=== PATIENT | female | born 1940 | race Caucasian/White ===

== ENCOUNTER 2017-08-12 01:52 | Emergency (ER) | payer MEDICARE, MEDICAID ==
[2017-08-12 02:07] VITALS: BP 150/84
--- NOTE | 2017-08-12 02:12 | EDM.PDOC ---
ED HPI GENERAL MEDICAL PROBLEM - General Chief Complaint: Neuro Symptoms/Deficits Stated Complaint: IN BY AMBULANCE Time Seen by Provider: 08/12/17 01:56 Source of Information: Reports: EMS, Family History Limitations: Reports: Altered Mental Status - History of Present Illness INITIAL COMMENTS - FREE TEXT/NARRATIVE: ED via [facility]. Patient noted by daughter at 89 to be gurgling and shaking. Similar with previous CVA 9 years ago. Last time seen by family that was her usual was 830pm. Prior CVA parlysis to right upper and lower extremities, Limited ability to form words. Family note that patient now seems weaker on the left and is not tracking as well with simple instructions. Onset: Today - Related Data Allergies Allergy/AdvReac Type Severity Reaction Status Date / Time aspirin Allergy Difficulty Verified 10/24/15 09:21 Breathing latex Allergy Rash Verified 10/24/15 09:21 Penicillins Allergy Cannot Verified 10/24/15 09:21 Remember Home Meds: Home Meds Digoxin [Digox] 125 mcg PO DAILY 01/02/15 [History] Oxybutynin [Oxybutynin ER] 10 mg PO DAILY 01/02/15 [History] Calcium Carb/Vitamin D3/Vit K1 [Viactiv Soft Chew Tablet] 1 tab PO DAILY [History] Cholecalciferol (Vitamin D3) [Vitamin D] 1,000 unit PO DAILY 06/19/15 [History] Cyanocobalamin (Vitamin B-12) [Cyanocobalamin Injection] 1,000 mcg IJ ASDIRECTED 06/19/15 [History] Diltiazem IR [Cardizem] 15 mg PO ASDIRECTED 06/19/15 [History] Escitalopram [Lexapro] 20 mg PO DAILY 06/19/15 [History] Ferrous Sulfate [Iron] 325 mg PO DAILY 06/19/15 [History] Potassium Chloride 10 meq PO DAILY 06/19/15 [History] Warfarin [Coumadin] 5 mg PO DAILY 06/19/15 [History] Cranberry Extract [Cranberry] 250 mg PO DAILY 10/17/15 [History] Docusate Sodium [Colace] 100 mg PO DAILY PRN 10/17/15 [History] Methocarbamol 250 mg PO TID PRN 10/17/15 [History] Acetaminophen [Tylenol Extra Strength] 500 mg PO Q8H PRN 10/18/15 [History] Moxifloxacin HCl [Vigamox] 1 drop EYEBOTH QID 10/18/15 [History] Past Medical History HEENT History: Reports: Cataract, Impaired Vision Other HEENT History: WEARS CORRECTIVE LENSES Cardiovascular History: Reports: Afib Respiratory History: Other Respiratory History: HX OF RECENT BRONCHITIS Other Gastrointestinal History: abdominal hernia-hx surgery multiple times. 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: Musculoskeletal History: Reports: Osteoarthritis Other Musculoskeletal History: right sided paralysis-hx stroke Neurological History: Reports: CVA, Other (See Below) Other Neuro History: RIGHT SIDED WEAKNESS Psychiatric History: Reports: Depression Endocrine/Metabolic History: Reports: None Hematologic History: Reports: B12 Deficiency Immunologic History: Reports: None Oncologic (Cancer) History: Reports: None Dermatologic History: Reports: None - Infectious Disease History Infectious Disease History: Reports: Chicken Pox - Past Surgical History GI Surgical History: Reports: Bariatric Procedure, Hernia, Inguinal Social & Family History - Tobacco Use Smoking Status *Q: Light Tobacco Smoker Years of Tobacco use: 5 Used Tobacco, but Quit: Yes Month Tobacco Last Used: 0 Second Hand Smoke Exposure: No - Alcohol Use Days Per Week of Alcohol Use: 0 - Recreational Drug Use Recreational Drug Use: No Drug Use in Last 12 Months: No ED ROS GENERAL - Review of Systems Review Of Systems: See Below Constitutional: Reports: No Symptoms HEENT: Reports: No Symptoms Respiratory: Reports: No Symptoms Cardiovascular: Reports: No Symptoms Endocrine: Reports: No Symptoms GI/Abdominal: Reports: No Symptoms : Reports: No Symptoms Neurological: Reports: Pre-Existing Deficit, Seizure, Trouble Speaking, Weakness - Physical Exam Exam: See Below Exam Limited By: No Limitations General Appearance: Alert, No Apparent Distress Eye Exam: Bilateral Eye: EOMI (slight medial deviationof left ey), PERRL (4mm) Ears: Normal External Exam Nose: Normal Inspection Throat/Mouth: Normal Inspection Head Exam: Atraumatic, Normocephalic Neck: Normal Inspection, Supple Respiratory/Chest: No Respiratory Distress, Lungs Clear, Normal Breath Sounds Cardiovascular: Normal Peripheral Pulses, Regular Rate, Rhythm, No Gallop Rectal (Female) Exam: Normal Exam Neuro Exam (Abbreviated): Alert, Oriented Back Exam: Normal Inspection Extremities: Normal Inspection, Pedal Edema, Leg Pain (left lower), Limited Range of Motion. No: Mottled Psychiatric: Normal Affect Skin Exam: Warm, Dry, Intact, Normal Color, No Rash Course - Vital Signs Last Recorded V/S: Last Vital Signs Temp 98.0 F 08/12/17 01:57 Pulse 92 08/12/17 01:57 Resp 18 08/12/17 01:57 BP 150/84 H 08/12/17 01:57 Pulse Ox 97 08/12/17 01:57 - Orders/Labs/Meds Labs: Laboratory Tests 08/12/17 08/12/17 08/12/17 Range/Units 01:55 01:55 01:55 WBC 8.9 (5.0-10.0) 10^3/uL RBC 4.54 (4.2-5.4) 10^6/uL Hgb 14.1 (12.0-16.0) g/dL Hct 42.0 (37.0-47.0) % MCV 92.5 (80-100) fL MCH 31.1 (27.0-34.0) pg MCHC 33.6 (33.0-35.0) g/dL Plt Count 180 (150-450) 10^3/uL Neut % (Auto) 44.6 (42.2-75.2) % Lymph % (Auto) 44.9 (20.5-50.1) % [place] % (Auto) 8.1 H (2-8) % Eos % (Auto) 2.0 (1.0-3.0) % Baso % (Auto) 0.4 (0.0-1.0) % PT 20.9 H D (9.0-12.0) SEC INR 2.1 H (0.9-1.2) Sodium 137 (135-145) mmol/L Potassium 3.9 (3.6-5.0) mmol/L Chloride 101 (101-111) mmol/L Carbon Dioxide 26.0 (21.0-31.0) mmol/L Anion Gap 13.9 BUN 11 (7-18) mg/dL Creatinine 0.9 (0.6-1.3) mg/dL Est Cr Clr Drug Dosing 41.40 mL/min Estimated GFR (MDRD) > 60 BUN/Creatinine Ratio 12.22 Glucose 99 (74-105) mg/dL Calcium 8.8 (8.4-10.2) mg/dl Total Bilirubin 0.6 (0.2-1.0) mg/dL AST 30 (10-42) IU/L ALT 16 (10-60) IU/L Alkaline Phosphatase 66 (42-121) IU/L Troponin I < 0.02 (0.00-0.02) ng/ml B-Natriuretic Peptide 130 H (0-100) pg/ml Total Protein 6.4 L (6.7-8.2) g/dl Albumin 3.7 (3.2-5.5) g/dl Globulin 2.7 Albumin/Globulin Ratio 1.37 Urine Color (YELLOW) Urine Appearance (CLEAR) Urine pH (5.0-9.0) Ur Specific [place] (1.005-1.030) Urine Protein (NEGATIVE) Urine Glucose (UA) (NEGATIVE) Urine Ketones (NEGATIVE) Urine Occult Blood (NEGATIVE) Urine Nitrite (NEGATIVE) Urine Bilirubin (NEGATIVE) Urine Urobilinogen (0.2-1.0) mg/dL Ur Leukocyte Esterase (NEGATIVE) Urine RBC /HPF Urine WBC (0-5/HPF) /HPF Ur Epithelial Cells /HPF Urine Bacteria (0-FEW/HPF) /HPF Urine Mucus /LPF Urine Yeast (0/HPF) /HPF Digoxin (0-2.5) ng/ml 08/12/17 08/12/17 Range/Units 01:55 03:03 WBC (5.0-10.0) 10^3/uL RBC (4.2-5.4) 10^6/uL Hgb (12.0-16.0) g/dL Hct (37.0-47.0) % MCV (80-100) fL MCH (27.0-34.0) pg MCHC (33.0-35.0) g/dL Plt Count (150-450) 10^3/uL Neut % (Auto) (42.2-75.2) % Lymph % (Auto) (20.5-50.1) % [place]da % (Auto) (2-8) % Eos % (Auto) (1.0-3.0) % Baso % (Auto) (0.0-1.0) % PT (9.0-12.0) SEC INR (0.9-1.2) Sodium (135-145) mmol/L Potassium (3.6-5.0) mmol/L Chloride (101-111) mmol/L Carbon Dioxide (21.0-31.0) mmol/L Anion Gap BUN (7-18) mg/dL Creatinine (0.6-1.3) mg/dL Est Cr Clr Drug Dosing mL/min Estimated GFR (MDRD) BUN/Creatinine Ratio Glucose (74-105) mg/dL Calcium (8.4-10.2) mg/dl Total Bilirubin (0.2-1.0) mg/dL AST (10-42) IU/L ALT (10-60) IU/L Alkaline Phosphatase (42-121) IU/L Troponin I (0.00-0.02) ng/ml B-Natriuretic Peptide (0-100) pg/ml Total Protein (6.7-8.2) g/dl Albumin (3.2-5.5) g/dl Globulin Albumin/Globulin Ratio Urine Color Yellow (YELLOW) Urine Appearance Slightly cloudy (CLEAR) Urine pH 5.5 (5.0-9.0) Ur Specific [place] 1.020 (1.005-1.030) Urine Protein Negative (NEGATIVE) Urine Glucose (UA) Negative (NEGATIVE) Urine Ketones Negative (NEGATIVE) Urine Occult Blood Small H (NEGATIVE) Urine Nitrite Negative (NEGATIVE) Urine Bilirubin Negative (NEGATIVE) Urine Urobilinogen 0.2 (0.2-1.0) mg/dL Ur Leukocyte Esterase Negative (NEGATIVE) Urine RBC 5-10 H /HPF Urine WBC 0-5 (0-5/HPF) /HPF Ur Epithelial Cells Few /HPF Urine Bacteria Many H (0-FEW/HPF) /HPF Urine Mucus Few H /LPF Urine Yeast Few H (0/HPF) /HPF Digoxin 0.7 (0-2.5) ng/ml Meds: Medications Discontinued Medications Generic Name Dose Route Start Last Admin Trade Name Freq PRN Reason Stop Dose Admin Sodium Chloride 1,000 mls @ 100 mls/hr 08/12/17 03:40 Normal Saline IV 08/12/17 13:39 .BOLUS ONE - Radiology Interpretation Free Text/Narrative:: CT head no acute change, 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 Departure - Departure Time of Disposition: 03:42 Disposition: DC/Tfer to Acute Hospital 02 Condition: Fair Clinical Impression: Seizure, History of CVA with residual deficit, Anticoagulant long-term use Atrial fibrillation Qualifiers: Atrial fibrillation type: unspecified Qualified Code(s): I48.91 - Unspecified atrial fibrillation - Discharge Information Forms: ED Department Discharge
[2017-08-12 02:30] LABS: ANION GAP 13.9; CHLORIDE,CL 101 mmol/L (101-111); SODIUM,NA 137 mmol/L (135-145)
[2017-08-12] MEDS ORDERED: Sodium Chloride 0.9% 1,000 ML IV ONE (03:40)
--- NOTE | 2017-08-12 12:58 | EKG ---
08/12/2017 - TAIWO MCCURDY - This 12-lead EKG shows atrial fibrillation with a controlled ventricular rate of 77. Normal axis. No acute ST-segment or T-wave changes. [facility] /[id number]
== END 2017-08-12 04:35 ==
LOC: DL.ED 01:52
DX: R56.9 Unspecified convulsions (principal); I48.91 Unspecified atrial fibrillation; F17.210 Nicotine dependence, cigarettes, uncomplicated; Z88.6 Allergy status to analgesic agent; Z91.040 Latex allergy status; Z88.0 Allergy status to penicillin; Z86.73 Personal history of transient ischemic attack (TIA), and cerebral infarction without residual deficits; Z79.899 Other long term (current) drug therapy; Z79.01 Long term (current) use of anticoagulants
CPT/HCPCS: 36415; 70450; 80053; 80162; 81001; 83880; 84484; 85025; 85610; 93005; 93010; 99285

== ENCOUNTER 2019-09-17 14:13 | Emergency (ER) | payer MEDICARE, MEDICAID ==
[2019-09-17 14:51] LABS: ANION GAP 15.2; CHLORIDE,CL 103 mmol/L (101-111); SODIUM,NA 137 mmol/L (135-145)
--- NOTE | 2019-09-17 15:23 | EDM.PDOC ---
ED HPI GENERAL MEDICAL PROBLEM - General Chief Complaint: Trauma Stated Complaint: AMBULANCE Time Seen by Provider: 09/17/19 14:15 Source of Information: Reports: EMS, EMS Notes Reviewed, Family, [facility] Records, RN, RN Notes Reviewed History Limitations: Reports: Language Barrier (expressive aphasia), Physical Impairment (hemiparesis right side) - History of Present Illness INITIAL COMMENTS - FREE TEXT/NARRATIVE: patient presents to the ER per [facility] from skilled nursing after a fall. Fall was unwitnessed, patient was found lying on her right side. Staff states the patient is crying out in pain, complaining of pain in the left leg. Patient makes indication that she has not hit her head are pending May 14, staff agree they do not believe the patient hit her head or was knocked out. Upon arrival to the ER, patient does not complain of any pain upon assessment. Daughter is in the room, and states she does not feel her mother is in any pain at this time either. Onset: Today, Sudden - Related Data Allergies Allergy/AdvReac Type Severity Reaction Status Date / Time aspirin Allergy Difficulty Verified 07/08/18 10:48 Breathing latex Allergy Rash Verified 07/08/18 10:48 Penicillins Allergy Cannot Verified 07/08/18 10:48 Remember Home Meds: Home Meds Digoxin [Digox] 125 mcg PO DAILY 01/02/15 [History] Calcium Carb/Vitamin D3/Vit K1 [Viactiv Soft Chew] 1 tab PO DAILY 06/19/15 [ History] Cyanocobalamin (Vitamin B-12) [Cyanocobalamin Injection] 1,000 mcg IJ ASDIRECTED 06/19/15 [History] Diltiazem IR [Cardizem] 15 mg PO .MORNING 06/19/15 [History] Ferrous Sulfate [Iron] 325 mg PO Q48H 06/19/15 [History] Potassium Chloride 10 meq PO DAILY 06/19/15 [History] Warfarin [Coumadin] 5 mg PO DAILY 06/19/15 [History] Cranberry Fruit Extract [Cranberry] 250 mg PO DAILY 10/17/15 [History] Docusate Sodium [Colace] 100 mg PO DAILY PRN 10/17/15 [History] Acetaminophen [Tylenol Extra Strength] 500 mg PO Q8H PRN 10/18/15 [History] Citalopram [Citalopram HBr] 30 mg PO DAILY 07/08/18 [History] Diltiazem IR [Cardizem] 15 mg PO .MORNING 07/08/18 [History] Diltiazem IR [Cardizem] 30 mg PO BEDTIME 07/08/18 [History] lamoTRIgine [Lamotrigine] 25 mg PO .MORNING 07/08/18 [History] lamoTRIgine [Lamotrigine] 25 mg PO BEDTIME 07/08/18 [History] Ciprofloxacin [Ciprofloxacin HCl] 250 mg PO BID #10 tablet 07/09/18 [Rx] Lidocaine 5% [Lidoderm 5%] 700 mg TOP DAILY #5 patch 07/09/18 [Rx] Past Medical History HEENT History: Reports: Cataract, Impaired Vision Other HEENT History: WEARS CORRECTIVE LENSES Cardiovascular History: Reports: Afib Respiratory History: Other Respiratory History: HX OF RECENT BRONCHITIS Other Gastrointestinal History: abdominal hernia-hx surgery multiple times. 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: Musculoskeletal History: Reports: Osteoarthritis Other Musculoskeletal History: right sided paralysis-hx stroke Neurological History: Reports: CVA, Other (See Below) Other Neuro History: RIGHT SIDED WEAKNESS Psychiatric History: Reports: Depression Endocrine/Metabolic History: Reports: None Hematologic History: Reports: B12 Deficiency Immunologic History: Reports: None Oncologic (Cancer) History: Reports: None Dermatologic History: Reports: None - Infectious Disease History Infectious Disease History: Reports: Chicken Pox - Past Surgical History GI Surgical History: Reports: Bariatric Procedure, Hernia, Inguinal Social & Family History - Family History Family Medical History: Noncontributory - Caffeine Use Caffeine Use: Reports: Coffee - Living Situation & Occupation Living situation: Reports: Alone (with caregivers) Occupation: Retired Review of Systems - Review of Systems Review Of Systems: Comprehensive ROS is negative, except as noted in HPI. ED EXAM, GENERAL - Physical Exam Exam: See Below Exam Limited By: Language Barrier (expressive aphasia) General Appearance: Alert, WD/WN, Anxious Eye Exam: Bilateral Eye: EOMI, Normal Inspection Ears: Normal External Exam, Hearing Grossly Normal Nose: Normal Inspection Throat/Mouth: Normal Inspection, Normal Voice, No Airway Compromise, Other ( expressive aphasia) Head: Atraumatic, Normocephalic Neck: Normal Inspection, Supple, Non-Tender, Full Range of Motion Respiratory/Chest: No Respiratory Distress, Lungs Clear, Normal Breath Sounds, No Accessory Muscle Use, Chest Non-Tender Cardiovascular: Normal Peripheral Pulses, Regular Rate, Rhythm Peripheral Pulses: 2+: Radial (L), Radial (R) GI/Abdominal: Normal Bowel Sounds, Soft, Non-Tender (Female) Exam: Deferred Rectal (Female) Exam: Deferred Back Exam: Normal Inspection, Full Range of Motion, NT Extremities: Limited Range of Motion (right-sided hemiplegia from previous stroke) Neurological: Alert, Other (expressive aphasia) Psychiatric: Anxious Skin Exam: Warm, Dry, Intact, Normal Color, No Rash Lymphatic: No Adenopathy Course - Orders/Labs/Meds Labs: Laboratory Tests 09/17/19 09/17/19 09/17/19 Range/Units 13:50 13:50 13:50 WBC 7.1 (5.0-10.0) 10^3/uL RBC 4.17 L (4.2-5.4) 10^6/uL Hgb 13.6 D (12.0-16.0) g/dL Hct 41.1 (37.0-47.0) % MCV 98.6 D (80-100) fL MCH 32.6 (27.0-34.0) pg MCHC 33.1 (33.0-35.0) g/dL Plt Count 225 (150-450) 10^3/uL Neut % (Auto) 72.4 (42.2-75.2) % Lymph % (Auto) 18.1 L (20.5-50.1) % [place] % (Auto) 7.4 (2-8) % Eos % (Auto) 1.7 (1.0-3.0) % Baso % (Auto) 0.4 (0.0-1.0) % PT 15.8 H D (9.0-12.0) SEC INR 1.6 H (0.9-1.2) Sodium 137 (135-145) mmol/L Potassium 4.2 (3.6-5.0) mmol/L Chloride 103 (101-111) mmol/L Carbon Dioxide 23.0 (21.0-31.0) mmol/L Anion Gap 15.2 BUN 22 H (7-18) mg/dL Creatinine 1.0 (0.6-1.3) mg/dL Est Cr Clr Drug Dosing TNP Estimated GFR (MDRD) 53 BUN/Creatinine Ratio 22.00 Glucose 197 H (74-105) mg/dL POC Glucose (83-110) mg/dl Calcium 8.6 (8.4-10.2) mg/dl Total Bilirubin 0.5 (0.2-1.0) mg/dL AST 22 (10-42) IU/L ALT 14 (10-60) IU/L Alkaline Phosphatase 70 (42-121) IU/L Total Protein 6.5 L (6.7-8.2) g/dl Albumin 3.8 (3.2-5.5) g/dl Globulin 2.7 Albumin/Globulin Ratio 1.41 Urine Color (YELLOW) Urine Appearance (CLEAR) Urine pH (5.0-9.0) Ur Specific [place] (1.005-1.030) Urine Protein (NEGATIVE) Urine Glucose (UA) (NEGATIVE) Urine Ketones (NEGATIVE) Urine Occult Blood (NEGATIVE) Urine Nitrite (NEGATIVE) Urine Bilirubin (NEGATIVE) Urine Urobilinogen (0.2-1.0) mg/dL Ur Leukocyte Esterase (NEGATIVE) Urine RBC /HPF Urine WBC (0-5/HPF) /HPF Ur Epithelial Cells (NOT SEEN) /HPF Amorphous Sediment (NOT SEEN) /HPF Urine Bacteria (0-FEW/HPF) /HPF Urine Mucus (NOT SEEN) /LPF 09/17/19 09/17/19 Range/Units 13:51 14:53 WBC (5.0-10.0) 10^3/uL RBC (4.2-5.4) 10^6/uL Hgb (12.0-16.0) g/dL Hct (37.0-47.0) % MCV (80-100) fL MCH (27.0-34.0) pg MCHC (33.0-35.0) g/dL Plt Count (150-450) 10^3/uL Neut % (Auto) (42.2-75.2) % Lymph % (Auto) (20.5-50.1) % [place] % (Auto) (2-8) % Eos % (Auto) (1.0-3.0) % Baso % (Auto) (0.0-1.0) % PT (9.0-12.0) SEC INR (0.9-1.2) Sodium (135-145) mmol/L Potassium (3.6-5.0) mmol/L Chloride (101-111) mmol/L Carbon Dioxide (21.0-31.0) mmol/L Anion Gap BUN (7-18) mg/dL Creatinine (0.6-1.3) mg/dL Est Cr Clr Drug Dosing Estimated GFR (MDRD) BUN/Creatinine Ratio Glucose (74-105) mg/dL POC Glucose 195 H (83-110) mg/dl Calcium (8.4-10.2) mg/dl Total Bilirubin (0.2-1.0) mg/dL AST (10-42) IU/L ALT (10-60) IU/L Alkaline Phosphatase (42-121) IU/L Total Protein (6.7-8.2) g/dl Albumin (3.2-5.5) g/dl Globulin Albumin/Globulin Ratio Urine Color Yellow (YELLOW) Urine Appearance Slightly cloudy (CLEAR) Urine pH 5.5 (5.0-9.0) Ur Specific [place] >= 1.030 (1.005-1.030) Urine Protein Negative (NEGATIVE) Urine Glucose (UA) 500 H (NEGATIVE) Urine Ketones Negative (NEGATIVE) Urine Occult Blood Small H (NEGATIVE) Urine Nitrite Negative (NEGATIVE) Urine Bilirubin Negative (NEGATIVE) Urine Urobilinogen 0.2 (0.2-1.0) mg/dL Ur Leukocyte Esterase Negative (NEGATIVE) Urine RBC 0-5 /HPF Urine WBC 0-5 (0-5/HPF) /HPF Ur Epithelial Cells Moderate H (NOT SEEN) /HPF Amorphous Sediment Few (NOT SEEN) /HPF Urine Bacteria Few (0-FEW/HPF) /HPF Urine Mucus Few H (NOT SEEN) /LPF - Re-Assessments/Exams Free Text/Narrative Re-Assessment/Exam: patient fully assessed in the bed after being delivered to the ER per ambulance. Patient smiling and giggling, denies any pain when all extremities are moved and palpated. Departure - Departure Time of Disposition: 15:27 Disposition: DC/Tfer to [facility] 63 Condition: Fair Clinical Impression: Fall Qualifiers: Encounter type: initial encounter Qualified Code(s): W19.XXXA - Unspecified fall, initial encounter - Discharge Information *PRESCRIPTION DRUG MONITORING PROGRAM REVIEWED*: No *COPY OF PRESCRIPTION DRUG MONITORING REPORT IN PATIENT DEVI: No Referrals: PCP,Unobtain [Primary Care Provider] - Forms: ED Department Discharge Additional Instructions: Follow up with your primary care facility Return to the ER with any further problems Sepsis Event Note - Focused Exam Date Exam was Performed: 09/22/19 Time Exam was Performed: 22:12
== END 2019-09-17 15:46 ==
LOC: DL.ED 14:13
DX: M79.605 Pain in left leg (principal); I48.91 Unspecified atrial fibrillation; F32.9 Major depressive disorder, single episode, unspecified; I69.351 Hemiplegia and hemiparesis following cerebral infarction affecting right dominant side; Z88.6 Allergy status to analgesic agent; Z88.0 Allergy status to penicillin; Z91.040 Latex allergy status; Z79.01 Long term (current) use of anticoagulants; Z79.899 Other long term (current) drug therapy; W19.XXXA Unspecified fall, initial encounter; Y92.129 Unspecified place in nursing home as the place of occurrence of the external cause
CPT/HCPCS: 36415; 80053; 81001; 82962; 85025; 85610; 99282; 99285-25

== ENCOUNTER 2022-03-08 18:32 | Emergency (ER) | payer MEDICARE, MEDICAID ==
[2022-03-08 19:28] VITALS: BP 163/86; PULSE 120
== END 2022-03-08 19:58 | disposition home or self-care (01) ==
LOC: DL.ED 18:32
DX: S99.921A Unspecified injury of right foot, initial encounter (principal); Z88.6 Allergy status to analgesic agent; Z91.040 Latex allergy status; Z88.0 Allergy status to penicillin; Z79.899 Other long term (current) drug therapy; Z86.73 Personal history of transient ischemic attack (TIA), and cerebral infarction without residual deficits; Z90.710 Acquired absence of both cervix and uterus; X58.XXXA Exposure to other specified factors, initial encounter
CPT/HCPCS: 73620-RT; 99284

== ENCOUNTER 2022-03-09 20:06 | Emergency (ER) | payer MEDICARE, MEDICAID ==
[2022-03-09 21:09] LABS: ANION GAP 15.2 mEq/L (7-13); CHLORIDE,CL 102 mmol/L (98-107); SODIUM,NA 136 mmol/L (136-145)
[2022-03-09 21:19] LABS: ESTIMATED GFR 44 mL/min (>=60)
[2022-03-09 21:44] VITALS: BP 120/60; PULSE 117
[2022-03-09] MEDS ORDERED: Heparin Sodium/0.45% NaCl 25,000 UNITS/500 ML BAG IV SCH (22:45)
[2022-03-09] MEDS ORDERED: Heparin Sodium 5,000 Units/ML Vial IVPUSH ONE (22:54)
[2022-03-09] MEDS ORDERED: Apixaban 5 MG Tab PO ONE (23:09)
[2022-03-09 23:39] LABS: PTT,PARTIAL THROMBOPLSTIN TIME 27.6 SEC (22.0-34.0)
== END 2022-03-10 00:44 ==
LOC: DL.ED 20:06
DX: U07.1 COVID-19 (principal); I48.20 Chronic atrial fibrillation, unspecified; I82.401 Acute embolism and thrombosis of unspecified deep veins of right lower extremity; I12.9 Hypertensive chronic kidney disease with stage 1 through stage 4 chronic kidney disease, or unspecified chronic kidney disease; N18.32 Chronic kidney disease, stage 3b; Z88.6 Allergy status to analgesic agent; Z91.040 Latex allergy status; Z88.0 Allergy status to penicillin; Z79.899 Other long term (current) drug therapy; Z86.73 Personal history of transient ischemic attack (TIA), and cerebral infarction without residual deficits; Z90.710 Acquired absence of both cervix and uterus
CPT/HCPCS: 36415; 80053; 81001; 82550; 85025; 85379; 85610; 85730; 86140; 87040; 93971; 96365; 96366; 99284; 99285; A9270; J3370; J7050; U0002; 87077; 87186